=== PATIENT | female | born 2005 | race Caucasian/White ===

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

== ENCOUNTER 2024-07-10 10:36 | Day surgery (SDC) | payer OTHER ==
[2024-07-04 13:39] VITALS: BMI 29.9
[~2024-07-10 10:36] MED LIST: LIDOCAINE 1% (10MG/ML) FOR IV START INTRADERMA PRN
[2024-07-10 11:19] VITALS: RESP 18; TEMP 97.1
[2024-07-10] MEDS: IV FLUID CONTINUATION 1,000 ML IV ONE (11:22)
[2024-07-10] MEDS: LACTATED RINGERS 1,000 ML IV SCH (11:23)
[2024-07-10] MEDS ORDERED: PROPOFOL 10 MG/ML 20 ML VIAL IV ONE (11:26)
--- NOTE | 2024-07-10 11:39 | P.PCN ---
Date of Procedure: 07/10/24 Procedure(s) Performed: BRIEF HISTORY: Patient is a 89-year-old pleasant female scheduled for an elective colonoscopy as a part of evaluation of intermittent lower abdominal pain and change in bowel habits for the last 3 years duration. PROCEDURE PERFORMED: Colonoscopy. PREOPERATIVE DIAGNOSIS: Lower abdominal pain and change in bowel habits. IV sedation per Anesthesia. PROCEDURE: After informed consent was obtained, the patient, was brought into the endoscopy unit. IV sedation was administered by Anesthesia under continuous monitoring. Digital rectal examination was normal. Initially the Olympus CF-160 flexible video colonoscope was then inserted in the rectum, gradually advanced into the cecum without any difficulty. Careful examination was performed as the scope was gradually being withdrawn. Ileocecal valve and the appendiceal orifice were visualized and appeared normal. Prep was excellent. Terminal ileum was intubated and there was a report hyperplasia noted. No evidence of erosions or ulcerations identified. Mucosa of the cecum, ascending colon, transverse colon, descending colon, sigmoid colon, and rectum appeared normal. Retroflexion was performed in the rectum and no lesions were seen. The patient tolerated the procedure well. IMPRESSION: Normal-appearing colon from rectum to cecum with no evidence of colorectal neoplasia. RECOMMENDATIONS: Findings of this examination were discussed with the patient as well as her family. She was advised to continue with her current medications and follow-up in the office in 2 to 3 weeks.
[2024-07-10 11:55] VITALS: BP 124/85; PULSE 70
== END 2024-07-10 12:07 | disposition home or self-care (01) ==
LOC: ORWHC2ENDO 10:36
PROVIDERS: ATTEND Internal Medicine Gastroenterology
DX: R19.4 Change in bowel habit
CPT/HCPCS: 45378; 81025

== ENCOUNTER → 2024-09-13 | Outpatient (CLI) | payer OTHER ==
[2024-09-13 15:17] LABS: HGB 14.4 g/dL (12.0-15.0); MCH 31.6 pg (27.0-32.0); MCHC 32.7 g/dL (32.0-37.0); MCV 96.5 FL (80.0-97.0); Mean Platelet Volume 10.6 FL (9.5-12.2); NRBC Per 100 WBC 0 X 10*3/uL (0.00-0.01); Platelet Count 259 X 10*3/uL (140-440); RBC 4.56 X 10*6/uL (4.10-5.20); RDW 13.2 % (11.5-14.5); WBC 7.53 X 10*3/uL (4.50-10.00)
== END | disposition home or self-care (01) ==
LOC: LABPAT 12:22
PROVIDERS: ATTEND Obstetrics & Gynecology
DX: Z01.812 Encounter for preprocedural laboratory examination (principal)
CPT/HCPCS: 85027

== ENCOUNTER 2024-09-23 08:27 | Day surgery (SDC) | payer OTHER ==
--- NOTE | 2024-09-23 07:37 | P.HPOB ---
History of Present Illness H&P Date: 09/23/24 Chief Complaint: pelvic pain 18 year old presents for laparoscopic removal of endometriosis using da vinic and placement of Kyleena IUD. Review of Systems All systems: negative Constitutional: Denies chills, Denies fever Eyes: denies blurred vision, denies pain Ears, nose, mouth and throat: Denies headache, Denies sore throat Cardiovascular: Denies chest pain, Denies shortness of breath Respiratory: Denies cough Gastrointestinal: Denies abdominal pain, Denies diarrhea, Denies nausea, Denies vomiting Genitourinary: Denies dysuria, Denies hematuria Musculoskeletal: Denies myalgias Integumentary: Denies pruritus, Denies rash Neurological: Denies numbness, Denies weakness Psychiatric: Denies anxiety, Denies depression Endocrine: Denies fatigue, Denies weight change Past Medical History Past Medical History: GERD/Reflux Additional Past Medical History / Comment(s): IBS, endometriosis History of Any Multi-Drug Resistant Organisms: None Reported Past Surgical History: Adenoidectomy, Tonsillectomy Past Anesthesia/Blood Transfusion Reactions: No Reported Reaction Additional Past Anesthesia/Blood Transfusion Reaction / Comment(s): no blood transfusion Smoking Status: Current every day smoker - Past Family History Mother Family Medical History: Cancer Additional Family Medical History / Comment(s): bipolar with severe depression, uterine Father Additional Family Medical History / Comment(s): WPW severe bipolar with depre ssion Medications and Allergies Home Medications Medication Instructions Recorded Confirmed Type No Known Home Medications 09/20/24 09/20/24 History Allergies Allergy/AdvReac Type Severity Reaction Status Date / Time Penicillins Allergy Anaphylaxis Verified 09/20/24 08:16 Exam Osteopathic Statement: *. No significant issues noted on an osteopathic structural exam other than those noted in the History and Physical/Consult. Heart: Regular rate and rhythm Lungs: Clear to auscultation bilaterally Abdomen: Soft, nontender Extremities: Negative Homans sign Assessment and Plan (1) Pelvic pain Status: Acute Code(s): R10.2 - PELVIC AND PERINEAL PAIN SNOMED Code(s): 85007606 Plan: 1. laparoscopic removal of endometriosis using da dann and placement of kyleena IUD
[~2024-09-23 08:27] MED LIST changes: +Pre Op ABX Message 1 EACH MISC MISCELLANE ONE
[2024-09-23] MEDS: IV FLUID CONTINUATION 1,000 ML IV ONE ×2 (08:58→13:43)
[2024-09-23 09:01] VITALS: TEMP 97.1
[2024-09-23] MEDS: DEXAMETHASONE SOD PHOSPHATE 4 MG/ML 1 ML VIAL IV ONE (09:08)
[2024-09-23] MEDS: ONDANSETRON 4 MG/2 ML VIAL IVP ONE (09:08)
[2024-09-23] MEDS: LACTATED RINGERS 1,000 ML IV SCH (09:08)
[2024-09-23] MEDS ORDERED: LIDOCAINE 1% INJ 10MG/ML (20 ML MDV) ONE (10:39)
[2024-09-23] MEDS ORDERED: NEOSTIGMINE 1 MG/ML 10 ML VIAL ONE (10:39)
[2024-09-23] MEDS ORDERED: INDOCYANINE GREEN 25 MG VIAL IV ONE (10:39)
[2024-09-23] MEDS ORDERED: ROCURONIUM 10 MG/ML (5 ML VIAL) IV ONE (10:39)
[2024-09-23] MEDS ORDERED: fentaNYL (PF) 50 MCG/ML 2 ML AMP ONE (10:39)
[2024-09-23] MEDS ORDERED: SUCCINYLCHOLINE CHLORIDE 200 MG/10 ML VIAL IV ONE (10:39)
[2024-09-23] MEDS ORDERED: KETOROLAC 15 MG/ML 1 ML VIAL ONE (10:39)
[2024-09-23] MEDS ORDERED: HYDROmorphone (PF) 1 MG/ML ONE (10:39)
[2024-09-23] MEDS ORDERED: PROPOFOL 10 MG/ML 20 ML VIAL IV ONE (10:39)
[2024-09-23] MEDS ORDERED: ACETAMINOPHEN IV (For NPO) 1,000 MG/100 ML VIAL ONE (10:39)
[2024-09-23] MEDS ORDERED: MIDAZOLAM 2 MG/2 ML VIAL ONE (10:39)
[2024-09-23] MEDS ORDERED: SUGAMMADEX SODIUM 200 MG/2 ML SDV IV ONE (10:39)
[2024-09-23] MEDS ORDERED: GLYCOPYRROLATE 0.2 MG/ML 2 ML VIAL ONE (10:39)
[2024-09-23] MEDS: BUPIVACAINE (PF) 0.25% 30 ML VIAL SQ ONE ×2 (11:17→11:32)
--- NOTE | 2024-09-23 11:51 | P.OP ---
Date of Procedure: 09/23/24 Preoperative Diagnosis: 1. pelvic pain Postoperative Diagnosis: 1. pelvic pain 2. suspect adenomyosis Procedure(s) Performed: diagnostic laparoscopy using da yun and insertion of Kyleena IUD Anesthesia: HILL Surgeon: Sera Gunderson Estimated Blood Loss (ml): 2 IV fluids (ml): 500 Urine output (ml): 250 Pathology: none sent Condition: stable Disposition: PACU Operative Findings: uterus, tubes, ovaries. No endometriosis noted, likely adenomyosis. Uterus sounded to 9 cm. Description of Procedure: Patient taken the operating room where general anesthesia was obtained without difficulty. She is prepped and draped in normal sterile fashion dorsal lithotomy position, legs placed in the Nikita stirrups. Weighted speculum placed in the vagina and the anterior lip the cervix was grasped with single-tooth tenaculum. The uterus sounded to 9 cm aand the kroner manipulator was placed. T Pollock catheter was also placed. Attention was then turned to the abdomen and gloves were changed. A 5 mm supraumbilical incision was made the scalpel and a 5 mm optical trocar was placed under direct visualization. 10 cm to the right of this and 2 cm down a 5 mm incision was made and 8 mm da Yun port was placed under direct visualization. Same measurements on the opposite side of the patient's abdomen, the 5 mm incision was made and 8 mm da Yun port was placed under direct visualization. The 5 mm optical trocar was then replaced with the 8 mm da Yun camera port. The robot was docked on patient's right side. The camera was introduced and then the monopolar curved scissor and [place] bipolar placed under direct visualization. I broke scrub and went to the physician console. survey of the pelvis revealed a normal-appearing uterus with normal mobility, normal fallopian tubes without scarring and normal ovaries. I didn't see any obvious endometriosis on the bladder or in the posterior cul-de-sac or the ovarian fossa. Her rectosigmoid colon was dilated. The ICG was introduced intravenously and fireflies a mode was placed on the camera. The fluorescence lighted up within the uterus and along the fallopian tubes but not anywhere else except for a little bit on the rectosigmoid colon. At this point no endometriosis had been seen so all instruments removed from the abdomen and the robot was undocked. The abdominal incisions were closed with 4-0 Vicryl in a subcuticular fashion. the anterior lip the cervix was grasped with a single- tooth tenaculum the uterus sounded 9 cm. The Kyleena intrauterine device was placed under direct visualization in the normal sterile fashion. The strings were cut to 2 cm in length. Patient tolerated the procedure well, sponge and instrument counts correct 2 and she was taken to recovery room in stable condition condition
[2024-09-23] MEDS: droPERidol 5 MG/2 ML VIAL IVP ONE (12:02)
[2024-09-23] MEDS: HYDROmorphone 0.5 MG/0.5 ML SYRINGE IVP PRN (12:13)
[2024-09-23 12:58] VITALS: RESP 16
[2024-09-23 13:25] VITALS: BP 143/75; PULSE 63
== END 2024-09-23 14:13 | disposition home or self-care (01) ==
LOC: OR 08:27
PROVIDERS: ATTEND Obstetrics & Gynecology
DX: N80.9 Endometriosis, unspecified (principal); K21.9 Gastro-esophageal reflux disease without esophagitis; F17.210 Nicotine dependence, cigarettes, uncomplicated; Z90.89 Acquired absence of other organs; Z88.0 Allergy status to penicillin
CPT/HCPCS: 58300; S2900; 81025